=== PATIENT | female | born 2000 | race Caucasian/White ===

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

== ENCOUNTER 2021-02-25 21:27 | Observation (INO) | payer OTHER ==
[~2021-02-25] VITALS: Ht 160 cm; Wt 68.0 kg
[~2021-02-25 21:27] MED LIST changes: +PRENATA3 PO
--- NOTE | 2021-02-25 21:30 | NUR ---
PT TO ROOM 13 VIA EMS
[2021-02-25 22:21] LABS: HEMATOCRIT 33.9 % (37.0-47.0); HEMOGLOBIN 11.8 g/dl (12.0-16.0); IMMATURE GRANULOCYTES 0.2 % (0.0-5.0); MEAN CELL VOLUME 94.2 fL CALC (80.0-100.0); MEAN CORPUSCULAR HGB 32.8 pG CALC (26.0-32.0); MEAN CORPUSCULAR HGB CONC 34.8 g/dL CAL (32.0-36.0); NEUT# 8.11 thou/uL (2.00-7.15); RED BLOOD COUNT 3.6 mill/uL (4.20-5.60); RED CELL DISTRI WIDTH 12.5 % (11.5-15.5)
[2021-02-25 22:34] LABS: ALKALINE PHOSPHATASE 85 u/l (38-126); ANION GAP 15 (6-22 (CALC)); BUN 9 mg/dL (7-17); BUN/CREATININE RATIO 15 (12-20 (CALC)); CARBON DIOXIDE 19 mmol/l (22-30); CHLORIDE 110 mmol/l (95-108); CREATININE 0.6 mg/dL (0.5-1.0); GFR > 60 ML/MIN (>=60 (CALC)); GFR FOR AFR.AMER. > 60 ML/MIN (>=60 (CALC)); POTASSIUM 3.1 mmol/l (3.5-5.1); SGOT/AST 17 u/l (14-36); SODIUM 141 mmol/l (137-146); TOTAL PROTEIN 7.1 g/dL (6.3-8.2)
--- NOTE | 2021-02-25 23:01 | NUR ---
AWAITING RESULTS. PT MORE COMFORTABLE AFTER NEB TX BUT STILL HAS COUGH. SATS 96%
--- NOTE | 2021-02-25 23:48 | NUR ---
PT TO BE ADMITTED. CALLED PT'S MOM TO INFORM HER AT PT REQUEST.
--- NOTE | 2021-02-26 00:10 | NUR ---
REPORT CALLED TO .
--- NOTE | 2021-02-26 00:20 | NUR ---
TRANSFERRED TO ROOM 277 VIA W/C
--- NOTE | 2021-02-26 02:41 | NUR ---
C/O HEADACHE; MEDICATED WITH TYLENOL PER EMAR ORDERS, WILL FOLLOW UP IN AN HOUR, NO OTHER NEEDS VOICED, CALL YEUNG AT REACH.
--- NOTE | 2021-02-26 04:38 | NUR ---
PATIENT IS RESTING IN BED WITH EYES CLOSED, NO PAIN OR NEEDS VOICED, WILL FOLLOW UP WITH FREQUENTLY ROUNDINGS.
[2021-02-26 04:47] VITALS: BP 113/66
[2021-02-26 05:13] LABS: HEMATOCRIT 33.7 % (37.0-47.0); HEMOGLOBIN 11.7 g/dl (12.0-16.0); MEAN CELL VOLUME 94.7 fL CALC (80.0-100.0); MEAN CORPUSCULAR HGB 32.9 pG CALC (26.0-32.0); MEAN CORPUSCULAR HGB CONC 34.7 g/dL CAL (32.0-36.0); RED BLOOD COUNT 3.56 mill/uL (4.20-5.60); RED CELL DISTRI WIDTH 12.5 % (11.5-15.5)
[2021-02-26 05:24] LABS: ANION GAP 13 (6-22 (CALC)); BUN 8 mg/dL (7-17); BUN/CREATININE RATIO 16 (12-20 (CALC)); CARBON DIOXIDE 22 mmol/l (22-30); CHLORIDE 109 mmol/l (95-108); CREATININE 0.5 mg/dL (0.5-1.0); GFR > 60 ML/MIN (>=60 (CALC)); GFR FOR AFR.AMER. > 60 ML/MIN (>=60 (CALC)); MAGNESIUM 1.8 mg/dL (1.6-2.3); POTASSIUM 3.5 mmol/l (3.5-5.1); SODIUM 140 mmol/l (137-146)
--- NOTE | 2021-02-26 06:14 | NUR ---
PATIENT IS RESTING IN BED WITH EYES CLOSED, AROUSES TO STIMULI, NO PAIN OR NEEDS REPORTED. NO S/S OF DISTRESS NOTED, CALL YEUNG AT REACH.
[2021-02-26 07:44] VITALS: BP 105/62
--- NOTE | 2021-02-26 08:00 | NUR ---
SHIFT CHANGE REPORT, PT AWAKE ALERT AND ORIENTED RESTING IN BED, STATES SHE FEELS MUCH BETTER TODAY THAN SHE DID YESTERDAY, IV CATHETER FOUND DISLODGED AND PT STATES SHE WOKE UP TO FING THAT WAY WITH SMALL AMOUNT DRIED BLOOD AROUND INSERTION SITE, CATHETER REMOVED, SITE CLEANED WITH 0.9NS AND BANDAID APPLIED. O2 @ 2L VIA NC IN PLACE, CALL YEUNG IN REACH AND BED LOCKED IN LOWEST POSITION.
[2021-02-26 11:14] VITALS: BP 120/65
[2021-02-26] MEDS ORDERED: ALBUTEROL1.25 MG/3 NEB (11:43)
[2021-02-26] MEDS ORDERED: VENTOLIN HFA108 MCG IN (11:45)
[2021-02-26] MEDS ORDERED: MEDDOSEPAK PO (11:45)
[2021-02-26] MEDS ORDERED: NEBULIZER NEB (11:46)
--- NOTE | 2021-02-26 12:27 | NUR ---
Discharge instructions given. Patient verbalizes understanding of same. Discharged in fair condition via Ambulatory to Home with family. All belongings sent with pt. PT REQUESTED TO AMBULATE OFF UNIT.
== END 2021-02-26 12:27 | disposition home or self-care (01) ==
LOC: ED 21:27 → ED-I 23:29 → ED 23:39 → MS2 23:40
PROVIDERS: Emergency Medicine; ADMIT Hospitalist; ATTEND Hospitalist
DX: J45.901 Unspecified asthma with (acute) exacerbation (principal); J06.9 Acute upper respiratory infection, unspecified; F31.9 Bipolar disorder, unspecified; Z20.822 Contact with and (suspected) exposure to COVID-19
CPT/HCPCS: G0378

== ENCOUNTER 2021-08-09 10:18 | Emergency (ER) | payer OTHER ==
[~2021-08-09 10:18] MED LIST changes: +ALBUTEROL1.25 MG/3 NEB; +NEBULIZER NEB; +VENTOLIN HFA108 MCG IN
== END 2021-08-09 10:35 | disposition home or self-care (01) | DRG 951 ==
LOC: ED 10:18 → LWOBS 10:35
DX: Z53.21 Procedure and treatment not carried out due to patient leaving prior to being seen by health care provider (principal)

== ENCOUNTER 2021-08-12 10:06 | Emergency (ER) | payer OTHER ==
[~2021-08-12] VITALS: Ht 160 cm; Wt 75.0 kg
[2021-08-12 10:19] VITALS: BP 118/81
[2021-08-12 10:30] VITALS: BP 120/74
[2021-08-12] MEDS ORDERED: CLINDAMYCIN300 M1 PO (10:34)
[2021-08-12] MEDS ORDERED: TYLENOL # 31 TA1 PO (10:34)
[2021-08-12 10:45] VITALS: BP 124/78
[2021-08-12 11:00] VITALS: BP 128/88
== END 2021-08-12 11:10 | disposition home or self-care (01) ==
LOC: ED 10:06
DX: K04.7 Periapical abscess without sinus (principal); K01.1 Impacted teeth; F31.9 Bipolar disorder, unspecified; J45.909 Unspecified asthma, uncomplicated

== ENCOUNTER 2021-11-29 17:57 | Emergency (ER) | payer OTHER ==
[~2021-11-29] VITALS: Ht 160 cm; Wt 77.2 kg
[~2021-11-29 17:57] MED LIST changes: +CLINDAMYCIN300 M1 PO; +TYLENOL # 31 TA1 PO
[2021-11-29 18:05] VITALS: BP 114/69
[2021-11-29 18:15] VITALS: BP 123/76
[2021-11-29 18:30] VITALS: BP 116/61
[2021-11-29 18:30] LABS: HEMATOCRIT 37.5 % (37.0-47.0); HEMOGLOBIN 13.3 g/dl (12.0-16.0); MEAN CELL VOLUME 89.1 fL CALC (80.0-100.0); MEAN CORPUSCULAR HGB 31.6 pG CALC (26.0-32.0); MEAN CORPUSCULAR HGB CONC 35.5 g/dL CAL (32.0-36.0); NEUT# 4.82 thou/uL (2.00-7.15); RED BLOOD COUNT 4.21 mill/uL (4.20-5.60); RED CELL DISTRI WIDTH 12.7 % (11.5-15.5)
[2021-11-29 18:31] LABS: URINE BILIRUBIN - DIPSTICK NEGATIVE (NEGATIVE); URINE BLOOD DIPSTICK MODERATE (NEGATIVE); URINE COLOR YELLOW; URINE GLUCOSE - DIPSTICK NEGATIVE (NEGATIVE); URINE KETONE NEGATIVE (NEGATIVE); URINE LEUK ESTERASE NEGATIVE (NEGATIVE); URINE PROTEIN - DIPSTICK 100 mg/dL (NEG-TRACE); URINE SPECIFIC GRAVITY >=1.030
[2021-11-29 18:33] LABS: URINE NITRITE - DIPSTICK NEGATIVE (Negative)
[2021-11-29 18:40] LABS: URINE SQUAMOUS EPITHELIAL CELL MODERATE EPI/hpf (0-FEW)
[2021-11-29 18:44] LABS: ALBUMIN 3.6 g/dL (3.2-5.0); ALKALINE PHOSPHATASE 62 u/l (38-126); ANION GAP 10 (6-22 (CALC)); BUN 5 mg/dL (7-17); BUN/CREATININE RATIO 10 (12-20 (CALC)); CARBON DIOXIDE 23 mmol/l (22-30); CHLORIDE 113 mmol/l (95-108); CREATININE 0.5 mg/dL (0.5-1.0); GFR FOR AFR.AMER. > 60 ML/MIN (>=60 (CALC)); GFR OTHER RACES > 60 ML/MIN (>=60 (CALC)); SGOT/AST 13 u/l (14-36); SODIUM 142 mmol/l (137-146); TOTAL PROTEIN 6.2 g/dL (6.3-8.2)
[2021-11-29 18:45] VITALS: BP 111/65
[2021-11-29 18:47] LABS: PROTHROMBIN TIME 10.3 SECONDS (9.0-12.5)
[2021-11-29 18:49] LABS: BILIRUBIN, TOTAL 0.4 mg/dL (0.0-1.4)
[2021-11-29 19:00] VITALS: BP 107/68
[2021-11-29] MEDS ORDERED: MECLIZINE 2525 MG PO (20:13)
[2021-11-29 20:29] VITALS: BP 107/68
== END 2021-11-29 20:37 | disposition home or self-care (01) ==
LOC: ED 17:57
PROVIDERS: Nurse Practitioner
DX: R42 Dizziness and giddiness (principal); J45.909 Unspecified asthma, uncomplicated; F31.9 Bipolar disorder, unspecified

== ENCOUNTER 2021-12-24 14:49 | Emergency (ER) | payer OTHER ==
[~2021-12-24] VITALS: Ht 160 cm; Wt 68.0 kg
[~2021-12-24 14:49] MED LIST changes: +MECLIZINE 2525 MG PO
[2021-12-24 15:05] VITALS: BP 108/64
[2021-12-24 16:46] VITALS: BP 108/64
[2021-12-24] MEDS ORDERED: EC-NAPROXEN500 MG PO (16:46)
[2021-12-24] MEDS ORDERED: OMNI-PAC300 MG PO (16:46)
== END 2021-12-24 16:58 | disposition home or self-care (01) ==
LOC: ED 14:49
DX: S61.412A Laceration without foreign body of left hand, initial encounter (principal); J45.909 Unspecified asthma, uncomplicated; F31.9 Bipolar disorder, unspecified; W26.0XXA Contact with knife, initial encounter; Y93.89 Activity, other specified; Y92.009 Unspecified place in unspecified non-institutional (private) residence as the place of occurrence of the external cause

== ENCOUNTER 2022-01-16 09:00 | Emergency (ER) | payer OTHER ==
[~2022-01-16] VITALS: Ht 160 cm; Wt 66.0 kg
[~2022-01-16 09:00] MED LIST changes: +EC-NAPROXEN500 MG PO; +OMNI-PAC300 MG PO
[2022-01-16 09:33] VITALS: BP 118/56
[2022-01-16 09:45] VITALS: BP 114/64
[2022-01-16 10:00] VITALS: BP 110/63
[2022-01-16 10:09] LABS: URINE BILIRUBIN - DIPSTICK NEGATIVE (NEGATIVE); URINE BLOOD DIPSTICK MODERATE (NEGATIVE); URINE COLOR YELLOW; URINE GLUCOSE - DIPSTICK NEGATIVE (NEGATIVE); URINE KETONE NEGATIVE (NEGATIVE); URINE PH 6.5 (4.5-8.0); URINE PROTEIN - DIPSTICK 100 mg/dL (NEG-TRACE); URINE SPECIFIC GRAVITY 1.015
[2022-01-16 10:14] LABS: HEMOGLOBIN 14.1 g/dl (12.0-16.0); IMMATURE GRANULOCYTES 0.1 % (0.0-5.0); MEAN CELL VOLUME 90.1 fL CALC (80.0-100.0); MEAN CORPUSCULAR HGB 31.8 pG CALC (26.0-32.0); MEAN CORPUSCULAR HGB CONC 35.3 g/dL CAL (32.0-36.0); NEUT# 6.6 thou/uL (2.00-7.15); RED BLOOD COUNT 4.44 mill/uL (4.20-5.60)
[2022-01-16 10:20] LABS: ALBUMIN 3.9 g/dL (3.2-5.0); ALKALINE PHOSPHATASE 63 u/l (38-126); ANION GAP 14 (6-22 (CALC)); BILIRUBIN, TOTAL 0.5 mg/dL (0.0-1.4); BUN 9 mg/dL (7-17); BUN/CREATININE RATIO 15 (12-20 (CALC)); CARBON DIOXIDE 23 mmol/l (22-30); CHLORIDE 108 mmol/l (95-108); CREATININE 0.6 mg/dL (0.5-1.0); GFR FOR AFR.AMER. > 60 ML/MIN (>=60 (CALC)); GFR OTHER RACES > 60 ML/MIN (>=60 (CALC)); LIPASE 28 u/l (23-300); POTASSIUM 4.1 mmol/l (3.5-5.1); SGOT/AST 17 u/l (14-36); SODIUM 141 mmol/l (137-146); TOTAL PROTEIN 6.4 g/dL (6.3-8.2)
[2022-01-16 10:20] LABS: URINE LEUK ESTERASE SMALL (NEGATIVE); URINE NITRITE - DIPSTICK NEGATIVE (Negative)
[2022-01-16 10:21] LABS: URINE BACTERIA FEW hpf; URINE SQUAMOUS EPITHELIAL CELL MANY EPI/hpf (0-FEW); URINE WBC 20-50 WBC/hpf (0-5)
[2022-01-16] MEDS ORDERED: ZOFRAN4 MG/TAB PO (12:03)
[2022-01-16] MEDS ORDERED: OMNI-PAC300 MG PO (12:07)
[2022-01-16 12:08] VITALS: BP 110/63
== END 2022-01-16 12:14 | disposition home or self-care (01) ==
LOC: ED 09:00
PROVIDERS: Family Medicine
DX: N39.0 Urinary tract infection, site not specified (principal); J45.909 Unspecified asthma, uncomplicated; F31.9 Bipolar disorder, unspecified

== ENCOUNTER 2022-01-28 09:59 | Emergency (ER) | payer OTHER ==
[~2022-01-28] VITALS: Ht 160 cm; Wt 72.6 kg
[2022-01-28] VITALS (7 sets, daily range): BP systolic 97–124; BP diastolic 49–79
[~2022-01-28 09:59] MED LIST changes: +ZOFRAN4 MG/TAB PO
[2022-01-28 10:25] LABS: HEMATOCRIT 39.4 % (37.0-47.0); HEMOGLOBIN 14.6 g/dl (12.0-16.0); MEAN CELL VOLUME 86.2 fL CALC (80.0-100.0); MEAN CORPUSCULAR HGB 31.9 pG CALC (26.0-32.0); MEAN CORPUSCULAR HGB CONC 37.1 g/dL CAL (32.0-36.0); NEUT# 2.44 thou/uL (2.00-7.15); RED BLOOD COUNT 4.57 mill/uL (4.20-5.60); RED CELL DISTRI WIDTH 12.5 % (11.5-15.5)
[2022-01-28 10:35] LABS: ALBUMIN 4.1 g/dL (3.2-5.0); ALKALINE PHOSPHATASE 78 u/l (38-126); ANION GAP 15 (6-22 (CALC)); BILIRUBIN, TOTAL 0.5 mg/dL (0.0-1.4); BUN 7 mg/dL (7-17); BUN/CREATININE RATIO 12 (12-20 (CALC)); CARBON DIOXIDE 20 mmol/l (22-30); CHLORIDE 109 mmol/l (95-108); CREATININE 0.6 mg/dL (0.5-1.0); GFR FOR AFR.AMER. > 60 ML/MIN (>=60 (CALC)); GFR OTHER RACES > 60 ML/MIN (>=60 (CALC)); LIPASE 260 u/l (23-300); SGOT/AST 22 u/l (14-36); SODIUM 140 mmol/l (137-146); TOTAL PROTEIN 7.5 g/dL (6.3-8.2)
[2022-01-28 10:55] LABS: URINE BILIRUBIN - DIPSTICK SMALL (NEGATIVE); URINE BLOOD DIPSTICK MODERATE (NEGATIVE); URINE COLOR YELLOW; URINE GLUCOSE - DIPSTICK NEGATIVE (NEGATIVE); URINE KETONE NEGATIVE (NEGATIVE); URINE LEUK ESTERASE NEGATIVE (NEGATIVE); URINE NITRITE - DIPSTICK NEGATIVE (Negative); URINE PROTEIN - DIPSTICK >=300 mg/dL (NEG-TRACE); URINE SPECIFIC GRAVITY 1.025
[2022-01-28] MEDS ORDERED: PROMETHAZINE HY25 M1 PO (11:20)
== END 2022-01-28 11:50 | disposition home or self-care (01) ==
LOC: ED 09:59
PROVIDERS: Family Medicine
DX: F10.129 Alcohol abuse with intoxication, unspecified (principal); F31.9 Bipolar disorder, unspecified; J45.909 Unspecified asthma, uncomplicated; F17.200 Nicotine dependence, unspecified, uncomplicated

== ENCOUNTER 2022-06-26 10:26 | Emergency (ER) | payer OTHER ==
[~2022-06-26] VITALS: Ht 160 cm; Wt 88.4 kg
[2022-06-26] VITALS (8 sets, daily range): BP systolic 97–117; BP diastolic 50–75
[~2022-06-26 10:26] MED LIST changes: +PROMETHAZINE HY25 M1 PO
[2022-06-26 11:16] LABS: URINE BILIRUBIN - DIPSTICK NEGATIVE (NEGATIVE); URINE BLOOD DIPSTICK MODERATE (NEGATIVE); URINE COLOR YELLOW; URINE GLUCOSE - DIPSTICK NEGATIVE (NEGATIVE); URINE KETONE NEGATIVE (NEGATIVE); URINE PH 6.5 (4.5-8.0); URINE PROTEIN - DIPSTICK 30 mg/dL (NEG-TRACE); URINE SPECIFIC GRAVITY 1.015; URINE UROBILINOGEN - DIPSTICK 0.2 E.U./dL (0.2)
[2022-06-26 11:17] LABS: URINE LEUK ESTERASE MODERATE (NEGATIVE); URINE NITRITE - DIPSTICK NEGATIVE (Negative)
[2022-06-26 11:20] LABS: URINE BACTERIA FEW hpf; URINE EPITHELIAL CELLS FEW EPI/hpf (0-FEW); URINE MUCUS MODERATE hpf (NONE-FEW); URINE RBC 0-2 RBC/hpf (0-5); URINE WBC 0-2 WBC/hpf (0-5)
[2022-06-26 11:25] LABS: BASO% 1.1 % (0-3); EOS% 4.7 % (0-8); HEMATOCRIT 36.4 % (37.0-47.0); HEMOGLOBIN 12.8 g/dl (12.0-16.0); IMMATURE GRANULOCYTES 0.2 % (0.0-5.0); LYMPH% 18.7 % (15-41); MEAN CELL VOLUME 88.8 fL CALC (80.0-100.0); MEAN CORPUSCULAR HGB 31.2 pG CALC (26.0-32.0); MEAN CORPUSCULAR HGB CONC 35.2 g/dL CAL (32.0-36.0); MONO% 6.7 % (2-13); NEUT# 3.77 thou/uL (2.00-7.15); NEUT% 68.6 % (42-76); RED BLOOD COUNT 4.1 mill/uL (4.20-5.60); RED CELL DISTRI WIDTH 12.4 % (11.5-15.5)
[2022-06-26 11:27] LABS: ALBUMIN 3.8 g/dL (3.2-5.0); ALKALINE PHOSPHATASE 59 u/l (38-126); BUN 8 mg/dL (7-17); BUN/CREATININE RATIO 14 (12-20 (CALC)); CHLORIDE 109 mmol/l (95-108); CREATININE 0.5 mg/dL (0.5-1.0); GFR FOR AFR.AMER. > 60 ML/MIN (>=60 (CALC)); GFR OTHER RACES > 60 ML/MIN (>=60 (CALC)); LIPASE 49 u/l (23-300); POTASSIUM 4.1 mmol/l (3.5-5.1); SGOT/AST 16 u/l (14-36); SODIUM 139 mmol/l (137-146); TOTAL PROTEIN 6.2 g/dL (6.3-8.2)
[2022-06-26 11:33] LABS: ANION GAP 9 (6-22 (CALC)); BILIRUBIN, TOTAL 0.2 mg/dL (0.02-1.3); CARBON DIOXIDE 25 mmol/l (22-30)
[2022-06-26] MEDS ORDERED: KEFLEX500 MG PO (11:58)
[2022-06-26] MEDS ORDERED: ZOFRAN4 MG/TAB PO (12:42)
== END 2022-06-26 12:51 | disposition home or self-care (01) ==
LOC: ED 10:26
PROVIDERS: Family Medicine
DX: N39.0 Urinary tract infection, site not specified (principal); J45.909 Unspecified asthma, uncomplicated; F31.9 Bipolar disorder, unspecified; F17.290 Nicotine dependence, other tobacco product, uncomplicated

== ENCOUNTER 2022-06-30 19:57 | Emergency (ER) | payer OTHER ==
[~2022-06-30] VITALS: Ht 160 cm; Wt 83.0 kg
[~2022-06-30 19:57] MED LIST changes: +KEFLEX500 MG PO
[2022-06-30 21:19] VITALS: BP 119/64
[2022-06-30 22:58] LABS: URINE BILIRUBIN - DIPSTICK NEGATIVE (NEGATIVE); URINE BLOOD DIPSTICK LARGE (NEGATIVE); URINE COLOR YELLOW; URINE GLUCOSE - DIPSTICK NEGATIVE (NEGATIVE); URINE KETONE NEGATIVE (NEGATIVE); URINE LEUK ESTERASE NEGATIVE (NEGATIVE); URINE PROTEIN - DIPSTICK >=300 mg/dL (NEG-TRACE); URINE SPECIFIC GRAVITY >=1.030; URINE UROBILINOGEN - DIPSTICK 0.2 E.U./dL (0.2)
[2022-06-30 23:03] LABS: URINE NITRITE - DIPSTICK NEGATIVE (Negative)
[2022-06-30 23:07] LABS: URINE SQUAMOUS EPITHELIAL CELL MANY EPI/hpf (0-FEW); URINE WBC 0-2 WBC/hpf (0-5)
== END 2022-06-30 23:48 | disposition left against medical advice (07) | DRG 552 ==
LOC: ED 19:57
PROVIDERS: Emergency Medicine
DX: M54.9 Dorsalgia, unspecified (principal); F31.9 Bipolar disorder, unspecified; M25.552 Pain in left hip; J45.909 Unspecified asthma, uncomplicated; M25.562 Pain in left knee; V43.02XA Car driver injured in collision with other type car in nontraffic accident, initial encounter; Y92.481 Parking lot as the place of occurrence of the external cause; Z53.29 Procedure and treatment not carried out because of patient's decision for other reasons

== ENCOUNTER 2022-08-21 13:13 | Emergency (ER) | payer OTHER ==
[~2022-08-21] VITALS: Ht 160 cm; Wt 76.2 kg
[2022-08-21 14:24] LABS: URINE BILIRUBIN - DIPSTICK NEGATIVE (NEGATIVE); URINE BLOOD DIPSTICK LARGE (NEGATIVE); URINE COLOR YELLOW; URINE GLUCOSE - DIPSTICK NEGATIVE (NEGATIVE); URINE KETONE NEGATIVE (NEGATIVE); URINE LEUK ESTERASE TRACE (NEGATIVE); URINE PH 6.5 (4.5-8.0); URINE PROTEIN - DIPSTICK >=300 mg/dL (NEG-TRACE); URINE SPECIFIC GRAVITY >=1.030; URINE UROBILINOGEN - DIPSTICK 0.2 E.U./dL (0.2)
[2022-08-21 14:26] LABS: URINE NITRITE - DIPSTICK NEGATIVE (Negative); URINE RBC 25-50 RBC/hpf (0-5)
[2022-08-21 14:27] LABS: URINE BACTERIA FEW hpf; URINE EPITHELIAL CELLS MODERATE EPI/hpf (0-FEW); URINE MUCUS FEW hpf (NONE-FEW); URINE WBC 0-2 WBC/hpf (0-5)
[2022-08-21 14:31] LABS: BASO% 0.9 % (0-3); EOS% 5.6 % (0-8); HEMATOCRIT 33.9 % (37.0-47.0); HEMOGLOBIN 11.8 g/dl (12.0-16.0); IMMATURE GRANULOCYTES 0.1 % (0.0-5.0); LYMPH% 13.8 % (15-41); MEAN CELL VOLUME 90.4 fL CALC (80.0-100.0); MEAN CORPUSCULAR HGB 31.5 pG CALC (26.0-32.0); MEAN CORPUSCULAR HGB CONC 34.8 g/dL CAL (32.0-36.0); MONO% 6.2 % (2-13); NEUT# 5.81 thou/uL (2.00-7.15); NEUT% 73.4 % (42-76); RED BLOOD COUNT 3.75 mill/uL (4.20-5.60); RED CELL DISTRI WIDTH 12.9 % (11.5-15.5)
[2022-08-21 14:42] LABS: ALBUMIN 3.5 g/dL (3.2-5.0); ALKALINE PHOSPHATASE 56 u/l (38-126); ANION GAP 9 (6-22 (CALC)); BUN 6 mg/dL (7-17); BUN/CREATININE RATIO 10 (12-20 (CALC)); CARBON DIOXIDE 28 mmol/l (22-30); CHLORIDE 109 mmol/l (95-108); CREATININE 0.6 mg/dL (0.5-1.0); GFR FOR AFR.AMER. > 60 ML/MIN (>=60 (CALC)); GFR OTHER RACES > 60 ML/MIN (>=60 (CALC)); LIPASE 67 u/l (23-300); POTASSIUM 4.1 mmol/l (3.5-5.1); SGOT/AST 14 u/l (14-36); SODIUM 142 mmol/l (137-146); TOTAL PROTEIN 5.8 g/dL (6.3-8.2)
[2022-08-21] MEDS ORDERED: KEFLEX500 MG PO (16:00)
[2022-08-21] MEDS ORDERED: NAPROXEN500 MG PO (16:00)
[2022-08-21 16:13] VITALS: BP 124/53
== END 2022-08-21 16:17 | disposition home or self-care (01) ==
LOC: ED 13:13
PROVIDERS: Nurse Practitioner
DX: N39.0 Urinary tract infection, site not specified (principal); J45.909 Unspecified asthma, uncomplicated; F31.9 Bipolar disorder, unspecified; F17.200 Nicotine dependence, unspecified, uncomplicated

== ENCOUNTER 2022-08-24 19:42 | Emergency (ER) | payer OTHER ==
[~2022-08-24] VITALS: Ht 160 cm; Wt 76.0 kg
[~2022-08-24 19:42] MED LIST changes: +NAPROXEN500 MG PO
[2022-08-24] MEDS ORDERED: MONISTAT1 VA (22:30)
[2022-08-24] MEDS ORDERED: METRONIDAZOLE500 MG PO (22:30)
[2022-08-24 22:49] VITALS: BP 120/58
== END 2022-08-24 22:54 | disposition home or self-care (01) ==
LOC: ED 19:42
DX: N76.0 Acute vaginitis (principal); J45.909 Unspecified asthma, uncomplicated; F31.9 Bipolar disorder, unspecified; F17.200 Nicotine dependence, unspecified, uncomplicated

== ENCOUNTER 2022-08-28 12:37 | Emergency (ER) | payer OTHER ==
[2022-08-28] VITALS (8 sets, daily range): BP systolic 91–118; BP diastolic 50–73
[~2022-08-28] VITALS: Ht 160 cm; Wt 76.0 kg
[~2022-08-28 12:37] MED LIST changes: +METRONIDAZOLE500 MG PO; +MONISTAT1 VA
[2022-08-28 14:38] LABS: BASO% 0.8 % (0-3); EOS% 6.3 % (0-8); HEMATOCRIT 32.7 % (37.0-47.0); HEMOGLOBIN 11.2 g/dl (12.0-16.0); IMMATURE GRANULOCYTES 0.3 % (0.0-5.0); MEAN CELL VOLUME 90.6 fL CALC (80.0-100.0); MEAN CORPUSCULAR HGB CONC 34.3 g/dL CAL (32.0-36.0); MONO% 6.6 % (2-13); NEUT# 5.17 thou/uL (2.00-7.15); RED BLOOD COUNT 3.61 mill/uL (4.20-5.60); RED CELL DISTRI WIDTH 12.7 % (11.5-15.5)
[2022-08-28 14:50] LABS: ALBUMIN 3.1 g/dL (3.2-5.0); ALKALINE PHOSPHATASE 49 u/l (38-126); BUN 7 mg/dL (7-17); BUN/CREATININE RATIO 15 (12-20 (CALC)); CHLORIDE 112 mmol/l (95-108); CREATININE 0.5 mg/dL (0.5-1.0); GFR FOR AFR.AMER. > 60 ML/MIN (>=60 (CALC)); GFR OTHER RACES > 60 ML/MIN (>=60 (CALC)); POTASSIUM 4.2 mmol/l (3.5-5.1); SGOT/AST 17 u/l (14-36); SODIUM 137 mmol/l (137-146); TOTAL PROTEIN 5.5 g/dL (6.3-8.2)
[2022-08-28 15:04] LABS: ANION GAP 7 (6-22 (CALC)); BILIRUBIN, TOTAL 0.1 mg/dL (0.02-1.3); CARBON DIOXIDE 22 mmol/l (22-30)
== END 2022-08-28 16:26 | disposition home or self-care (01) ==
LOC: ED 12:37
PROVIDERS: Family Medicine
DX: R60.9 Edema, unspecified (principal); J45.909 Unspecified asthma, uncomplicated; F31.9 Bipolar disorder, unspecified

== ENCOUNTER 2022-09-04 20:30 | Emergency (ER) | payer OTHER ==
[~2022-09-04] VITALS: Ht 160 cm; Wt 76.0 kg
[2022-09-04 20:55] VITALS: BP 118/93
[2022-09-04 21:00] VITALS: BP 131/86
[2022-09-04 21:15] VITALS: BP 116/81
[2022-09-04 21:32] LABS: URINE BILIRUBIN - DIPSTICK SEE COMMNET (NEGATIVE); URINE BLOOD DIPSTICK LARGE (NEGATIVE); URINE GLUCOSE - DIPSTICK NEGATIVE (NEGATIVE); URINE KETONE NEGATIVE (NEGATIVE); URINE LEUK ESTERASE NEGATIVE (NEGATIVE); URINE PH 6.5 (4.5-8.0); URINE PROTEIN - DIPSTICK >=300 mg/dL (NEG-TRACE); URINE SPECIFIC GRAVITY >=1.030; URINE UROBILINOGEN - DIPSTICK 0.2 E.U./dL (0.2)
[2022-09-04 21:33] LABS: URINE COLOR AMBER; URINE NITRITE - DIPSTICK NEGATIVE (Negative)
[2022-09-04 21:41] LABS: URINE RBC >100 RBC/hpf (0-5)
[2022-09-04 21:45] LABS: AMYLASE 50 u/l (30-110); ANION GAP 12 (6-22 (CALC)); BUN 5 mg/dL (7-17); BUN/CREATININE RATIO 10 (12-20 (CALC)); CARBON DIOXIDE 25 mmol/l (22-30); CHLORIDE 107 mmol/l (95-108); CREATININE 0.6 mg/dL (0.5-1.0); GFR FOR AFR.AMER. > 60 ML/MIN (>=60 (CALC)); GFR OTHER RACES > 60 ML/MIN (>=60 (CALC)); LIPASE 37 u/l (23-300); POTASSIUM 3.9 mmol/l (3.5-5.1); SGOT/AST 19 u/l (14-36); SODIUM 139 mmol/l (137-146)
[2022-09-04 21:47] LABS: ALBUMIN 3.8 g/dL (3.2-5.0); ALKALINE PHOSPHATASE 77 u/l (38-126); BILIRUBIN, TOTAL 0.2 mg/dL (0.02-1.3); TOTAL PROTEIN 7.1 g/dL (6.3-8.2)
[2022-09-04 22:37] LABS: BASO% 0.8 % (0-3); HEMATOCRIT 36.4 % (37.0-47.0); HEMOGLOBIN 12.4 g/dl (12.0-16.0); LYMPH% 11.4 % (15-41); MEAN CELL VOLUME 90.1 fL CALC (80.0-100.0); MEAN CORPUSCULAR HGB 30.7 pG CALC (26.0-32.0); MEAN CORPUSCULAR HGB CONC 34.1 g/dL CAL (32.0-36.0); MONO% 6.7 % (2-13); NEUT# 5.92 thou/uL (2.00-7.15); NEUT% 75.1 % (42-76); RED BLOOD COUNT 4.04 mill/uL (4.20-5.60); RED CELL DISTRI WIDTH 12.5 % (11.5-15.5)
[2022-09-05 01:13] VITALS: BP 116/81
[2022-09-05] MEDS ORDERED: ULTRAM50 MG PO (22:37)
[2022-09-05] MEDS ORDERED: PREVACID30 M1 PO (22:37)
[2022-09-05] MEDS ORDERED: ONDANSETRON4 MG PO (22:37)
== END 2022-09-05 01:13 | disposition left against medical advice (07) ==
LOC: ED 20:30
PROVIDERS: Emergency Medicine
DX: R10.11 Right upper quadrant pain (principal); J45.909 Unspecified asthma, uncomplicated; F31.9 Bipolar disorder, unspecified; Z53.29 Procedure and treatment not carried out because of patient's decision for other reasons
CPT/HCPCS: S0164

== ENCOUNTER 2022-09-05 17:45 | Emergency (ER) | payer OTHER ==
[~2022-09-05] VITALS: Ht 160 cm; Wt 76.2 kg
[2022-09-05 18:58] LABS: URINE BILIRUBIN - DIPSTICK NEGATIVE (NEGATIVE); URINE BLOOD DIPSTICK LARGE (NEGATIVE); URINE COLOR YELLOW; URINE GLUCOSE - DIPSTICK NEGATIVE (NEGATIVE); URINE KETONE NEGATIVE (NEGATIVE); URINE LEUK ESTERASE NEGATIVE (NEGATIVE); URINE PROTEIN - DIPSTICK 100 mg/dL (NEG-TRACE); URINE SPECIFIC GRAVITY 1.025
[2022-09-05 19:01] LABS: BASO% 0.8 % (0-3); EOS% 4.4 % (0-8); HEMATOCRIT 31.8 % (37.0-47.0); HEMOGLOBIN 11.1 g/dl (12.0-16.0); IMMATURE GRANULOCYTES 0.1 % (0.0-5.0); LYMPH% 10.6 % (15-41); MEAN CELL VOLUME 89.8 fL CALC (80.0-100.0); MEAN CORPUSCULAR HGB 31.4 pG CALC (26.0-32.0); MEAN CORPUSCULAR HGB CONC 34.9 g/dL CAL (32.0-36.0); MONO% 5.9 % (2-13); NEUT# 5.85 thou/uL (2.00-7.15); NEUT% 78.2 % (42-76); RED BLOOD COUNT 3.54 mill/uL (4.20-5.60); RED CELL DISTRI WIDTH 12.4 % (11.5-15.5)
[2022-09-05 19:16] LABS: ALBUMIN 3.3 g/dL (3.2-5.0); ALKALINE PHOSPHATASE 69 u/l (38-126); ANION GAP 10 (6-22 (CALC)); BUN 10 mg/dL (7-17); BUN/CREATININE RATIO 17 (12-20 (CALC)); CARBON DIOXIDE 24 mmol/l (22-30); CHLORIDE 110 mmol/l (95-108); CREATININE 0.6 mg/dL (0.5-1.0); GFR FOR AFR.AMER. > 60 ML/MIN (>=60 (CALC)); GFR OTHER RACES > 60 ML/MIN (>=60 (CALC)); LIPASE 52 u/l (23-300); SGOT/AST 17 u/l (14-36); SODIUM 139 mmol/l (137-146); TOTAL PROTEIN 5.9 g/dL (6.3-8.2)
[2022-09-05 19:18] LABS: BILIRUBIN, TOTAL 0.1 mg/dL (0.02-1.3)
[2022-09-05 19:19] LABS: URINE NITRITE - DIPSTICK NEGATIVE (Negative)
[2022-09-05 19:20] LABS: URINE RBC 50-100 RBC/hpf (0-5)
[2022-09-05 19:21] LABS: URINE SQUAMOUS EPITHELIAL CELL FEW EPI/hpf (0-FEW)
[2022-09-05 20:45] VITALS: BP 124/76
[2022-09-05] MEDS ORDERED: PREVACID30 M1 PO (22:37)
[2022-09-05] MEDS ORDERED: ULTRAM50 MG PO (22:37)
[2022-09-05] MEDS ORDERED: ONDANSETRON4 MG PO (22:37)
== END 2022-09-05 23:02 | disposition home or self-care (01) ==
LOC: ED 17:45
PROVIDERS: Family Medicine
DX: K29.70 Gastritis, unspecified, without bleeding (principal); J45.909 Unspecified asthma, uncomplicated; F31.9 Bipolar disorder, unspecified
CPT/HCPCS: Q9967; S0164

== ENCOUNTER 2023-02-08 10:05 | Emergency (ER) | payer OTHER ==
[~2023-02-08] VITALS: Ht 157.5 cm; Wt 68.0 kg
[~2023-02-08 10:05] MED LIST changes: +AMOX/K CLAV875 M1 PO; +ONDANSETRON4 MG PO; +PREDNISONE20 MG PO; +PREVACID30 M1 PO; +PROAIR RES108 MCG/AC PO; +SUDAFED 12HR120 MG PO; +ULTRAM50 MG PO
[2023-02-08 10:09] VITALS: BP 146/103
[2023-02-08 10:15] VITALS: BP 147/88
[2023-02-08 10:30] VITALS: BP 128/99
[2023-02-08 10:46] VITALS: BP 133/86
[2023-02-08 11:00] VITALS: BP 133/88
[2023-02-08] MEDS ORDERED: AMOX-POT CLA PO (11:06)
[2023-02-08] MEDS ORDERED: IBUPROFEN600 MG PO (11:06)
[2023-02-08 11:20] VITALS: BP 133/88
[2023-02-09] MEDS ORDERED: TRAMADOL HCL50 MG PO (02:07)
[2023-02-09] MEDS ORDERED: NAPROXEN375 MG PO (02:07)
== END 2023-02-08 11:30 | disposition home or self-care (01) ==
LOC: ED 10:05
DX: S02.5XXA Fracture of tooth (traumatic), initial encounter for closed fracture (principal); K05.10 Chronic gingivitis, plaque induced; J45.909 Unspecified asthma, uncomplicated; F31.9 Bipolar disorder, unspecified; X58.XXXA Exposure to other specified factors, initial encounter

== ENCOUNTER 2023-05-07 08:49 | Emergency (ER) | payer OTHER ==
[~2023-05-07] VITALS: Ht 157.5 cm; Wt 63.0 kg
[~2023-05-07 08:49] MED LIST changes: +AMOX-POT CLA PO; +NAPROXEN375 MG PO; +TRAMADOL HCL50 MG PO
[2023-05-07 08:59] VITALS: BP 108/78
[2023-05-07] MEDS ORDERED: CEPHALEXIN500 M1 PO (09:12)
[2023-05-07 09:26] VITALS: BP 110/84
[2023-05-08] MEDS ORDERED: MOTRIN800 MG PO (14:29)
== END 2023-05-07 09:26 | disposition home or self-care (01) ==
LOC: ED 08:49
DX: N75.0 Cyst of Bartholin's gland (principal); J45.909 Unspecified asthma, uncomplicated; F31.9 Bipolar disorder, unspecified; Z72.0 Tobacco use

== ENCOUNTER 2023-05-08 12:52 | Emergency (ER) | payer OTHER ==
[~2023-05-08] VITALS: Ht 157.5 cm; Wt 63.5 kg
[2023-05-08 13:04] VITALS: BP 117/64
[2023-05-08 13:15] VITALS: BP 106/57
[2023-05-08 13:30] VITALS: BP 109/62
[2023-05-08] MEDS ORDERED: LIDOcaine HCl 1% (Local Anesth.) 20 ML VIAL STI STA (13:43)
[2023-05-08 13:45] VITALS: BP 110/64
[2023-05-08] MEDS ORDERED: POVIDONE IODINE 0.5 OZ/BTL TOP ONE (13:45)
[2023-05-08 14:25] VITALS: BP 120/67
[2023-05-08] MEDS ORDERED: MOTRIN800 MG PO (14:29)
[2023-05-08 14:50] VITALS: BP 120/67
== END 2023-05-08 14:56 | disposition home or self-care (01) ==
LOC: ED 12:52
DX: N76.0 Acute vaginitis (principal); J45.909 Unspecified asthma, uncomplicated; F31.9 Bipolar disorder, unspecified; F17.200 Nicotine dependence, unspecified, uncomplicated

== ENCOUNTER 2023-10-14 08:00 | Emergency (ER) | payer SELFPAY ==
[~2023-10-14] VITALS: Ht 157.5 cm; Wt 68.0 kg
[~2023-10-14 08:00] MED LIST changes: +MOTRIN800 MG PO
[2023-10-14 08:05] VITALS: BP 144/96
[2023-10-14] MEDS ORDERED: CLEOCIN300 MG PO (08:10)
[2023-10-14] MEDS ORDERED: KETOROLAC TROMETHAMINE 30 MG/ML SDV IM ONE (08:10)
[2023-10-14 08:15] VITALS: BP 132/78
[2023-10-14 08:18] VITALS: BP 144/96
== END 2023-10-14 08:21 | disposition home or self-care (01) | DRG 159 ==
LOC: ED 08:00
DX: K03.81 Cracked tooth (principal); J45.909 Unspecified asthma, uncomplicated; F31.9 Bipolar disorder, unspecified; Z72.0 Tobacco use